=== PATIENT | female | born 1990 | race Caucasian/White ===

== ENCOUNTER 2019-05-10 09:01 | Inpatient (IN) | payer OTHER ==
--- NOTE | 2019-05-10 09:43 | BHS.RME ---
Substance Use & Tx History - Substance Use History Opiates (Heroin) Substance amount: 1 bundle Frequency of use: Daily Substance route: Injection (ex: intravenous or skin popping) Date of Last Use: 05/09/19 Cocaine (Powder) Substance amount: 2-3 bags Frequency of use: Daily Substance route: Injection (ex: intravenous or skin popping) Date of Last Use: 05/09/19 Nicotine Substance amount: 1pack or less Frequency of use: Daily Substance route: Smoking Date of Last Use: 05/10/19 - Last Treatment Date of last treatment: 08/2018 Treatment type: Substance Use Disorder (JOEY) Where was last treatment: [facility]ox ([facility]) Physical/Psych/Mental Status - Behavior General Behavior: Increased activity (restlessness, agitation) Eye Contact: Normal - Cooperativeness Cooperativeness: Cooperative - Thinking Thought Processes: Tight, Logical, Goal Directed Thought content: Future oriented - Physical Health Problems Is patient presently having any pain?: No Does patient presently have any injuries (include location): No Does patient currently have a fever: No Is patient : No COWS - Scale Sweatin= Chills/Flushing Restless Observation: 3= Extraneous Movement Pupil Size: 1= Pupils >than Normal Bone or Joint Aches: 4=Acute Joint/Muscle Pain Runny Nose/ Eye Tearin= Runny Nose/Eyes GI Upset > 30mins: 1= Stomach Cramp Tremor Observation: 2= Slight Tremor Visible Yawning Observation: 1= 1-2x During Session Anxiety or Irritability: 4=Extreme Anxiety Goose Flesh Skin: 3=Piloerection
[2019-05-10 09:50] VITALS: BMI 23.3
--- NOTE | 2019-05-10 10:21 | HP ---
COWS - Scale Resting Pulse: 1= [place] 81-100 Sweatin= Chills/Flushing Restless Observation: 3= Extraneous Movement Pupil Size: 1= Pupils >than Normal Bone or Joint Aches: 4=Acute Joint/Muscle Pain Runny Nose/ Eye Tearin= Runny Nose/Eyes GI Upset > 30mins: 1= Stomach Cramp Tremor Observation: 2= Slight Tremor Visible Yawning Observation: 1= 1-2x During Session Anxiety or Irritability: 4=Extreme Anxiety Goose Flesh Skin: 3=Piloerection COWS Score: 23 CIWA Score - Admission Criteria [facility]ASAS Guidelines: Admission for Medically Managed Detox: Requires at least one of the followin. CIWA greater than 12 2. Seizures within the past 24 hours 3. Delirium tremens within the past 24 hours 4. Hallucinations within the past 24 hours 5. Acute intervention needed for co occurring medical disorder 6. Acute intervention needed for co occurring psychiatric disorder 7. Severe withdrawal that cannot be handled at a lower level of care (continued vomiting, continued diarrhea, abnormal vital signs) requiring intravenous medication and/or fluids 8. Admitting History and Physical - Admission Chief Complaint: Ms. Cortez presents to [facility] requesting detox from heroin. History of Present Illness: Ms. Cortez presents to [facility] requesting detox from heroin. There are no prior admissions to [facility]. She is a 28 yo woman. PMH:noncontributory PSH: C section Psych: anxiety, depression Substance use history Heroin: one bundle per day, IV, last use yesterday, no hx of OD, No Narcan at home. First use age 23y Nicotine: one ppd Cocaine: IV, daily, 2-3 bags, first use age 23 y, last use yesterday - Past Medical History ...LMP: 05/05/19 ...: No - Smoking History Smoking history: Current every day smoker Have you smoked in the past 12 months: Yes Aproximately how many cigarettes per day: 10 Admission ROS [facility] Allergies/Adverse Reactions: Allergies Allergy/AdvReac Type Severity Reaction Status Date / Time No Known Allergies Allergy Verified 05/10/19 10:00 Exam Limitations: Clinical Condition (sleepy) - Ebola screening Have you traveled outside of the country in the last 21 days: No Have you had contact with anyone from an Ebola affected area: No Have you been sick,other than usual withdrawal symptoms: No Do you have a fever: No - Review of Systems Constitutional: No Symptoms Reported EENT: reports: Nose Congestion Respiratory: reports: No Symptoms reported Cardiac: reports: No Symptoms Reported GI: reports: Nausea Musculoskeletal: reports: No Symptoms Reported Integumentary: reports: No Symptoms Reported Neuro: reports: No Symptoms reported Endocrine: reports: No Symptoms Reported Hematology: reports: No Symptoms Reported Psychiatric: reports: Anxious Patient History - Patient Medical History Hx Asthma: No Hx Chronic Obstructive Pulmonary Disease (COPD): No Hx Cardiac Disorders: No Hx Hypertension: No Hx Seizures: No Hx Diabetes: No Hx Gastrointestinal Disorders: No Hx Genitourinary Disorders: No Hx Sexually Transmitted Disorders: No Hx Renal Disease (ESRD): No Hx Depression: Yes Hx Suicide Attempt: No Hx Schizophrenia: No - Patient Surgical History Past Surgical History: Yes Hx Neurologic Surgery: No Hx Cataract Extraction: No Hx Cardiac Surgery: No Hx Lung Surgery: No Hx Breast Surgery: No Hx Breast Biopsy: No Hx Abdominal Surgery: No Hx Appendectomy: No Hx Cholecystectomy: No Hx Genitourinary Surgery: No Hx Section: Yes (x1) Hx Orthopedic Surgery: No Anesthesia Reaction: No - PPD History Previous Implant?: No Documented Results: Negative w/o proof Implanted On Prior R Admission?: No - Reproductive History Last Menstrual Period: 05/05/19 Patient : No - Smoking Cessation Smoking history: Current every day smoker Have you smoked in the past 12 months: Yes Aproximately how many cigarettes per day: 10 Hx Chewing Tobacco Use: No Initiated information on smoking cessation: Yes 'Breaking Loose' booklet given: 05/10/19 - Substances abused Heroin Substance route: Injection Frequency: Daily Amount used: 1 BUNDLE Age of first use: 23 Date of last use: 05/09/19 Methamphetamine Substance route: Injection Frequency: Daily Amount used: 3BAGS Age of first use: 23 Date of last use: 05/09/19 Cocaine Substance route: Injection Frequency: Daily Amount used: 3BAGS Age of first use: 23 Date of last use: 05/09/19 Admission Physical Exam BHS - Vital Signs Vital Signs: Vital Signs - 24 hr 05/10/19 10:05 Temperature 97.5 F L Pulse Rate 85 Respiratory 18 Rate Blood Pressure 125/79 - Physical General Appearance: Yes: Within Normal Limits HEENTM: Yes: Hearing grossly Normal Respiratory: Yes: Lungs Clear Neck: Yes: Within Normal Limits Breast: Yes: Breast Exam Deferred Cardiology: Yes: Regular Rate, S1, S2 Abdominal: Yes: Soft, Decreased BS Back: Yes: Normal Inspection Musculoskeletal: Yes: Within Normal Limits Extremities: Yes: Within Normal Limits Neurological: Yes: Other (sleepy, easily aroused) Integumentary: Yes: Track Barrios (no signs of infection, bilateral arms) - Diagnostic (1) Opioid dependence with intoxication, uncomplicated Current Visit: Yes Status: Acute (2) Cocaine dependence Current Visit: Yes Status: Acute (3) Nicotine dependence Current Visit: Yes Status: Acute (4) Methamphetamine abuse Current Visit: Yes Status: Acute Cleared for Admission S - Detox or Rehab [facility] Level of Care: Medically Managed Breathalyzer - Breathalyzer Breathalyzer: 0 Urine Drug Screen - Test Device Lot number: [id number] Expiration date: 05/10/19 - Results Drug screen NEGATIVE: No Urine drug screen results: AMBREEN-Cocaine, MET-Methamphetamine, FEN-Fentanyl, MOP- Opiates Inpatient Rehab Admission - Rehab Decision to Admit Inpatient rehab admission?: No
[2019-05-10] MEDS ORDERED: IBUPROFEN 400 MG TABLET (FP) PO PRN (10:26)
[2019-05-10] MEDS ORDERED: BISMUTH SUBSALICYLATE 262 MG/15 ML BTL PO PRN (10:26)
[2019-05-10] MEDS ORDERED: MAGNESIUM HYDROX 2400MG/30ML ORAL SUSPENSION 30 ML CUP PO PRN (10:26)
[2019-05-10] MEDS ORDERED: MENTHOL/PHENOL 1 EACH UD MM PRN (10:26)
[2019-05-10] MEDS ORDERED: MAG HYDROX/AL HYDROX/SIMETH 30 ML UNIT-DOSE CUP PO PRN (10:26)
[2019-05-10] MEDS ORDERED: ACETAMINOPHEN 325 MG TABLET (FP) PO PRN ×2 (10:26)
[2019-05-10] MEDS ORDERED: cloNIDine HCL 0.1 MG TABLET PO PRN (10:26)
[2019-05-10] MEDS ORDERED: MAGNESIUM CITRATE 300 ML BOTTLE PO PRN (10:26)
[2019-05-10] MEDS ORDERED: METHADONE HCL 10 MG TABLET (FOR DETOX USE ONLY) PO ONE (10:50)
[2019-05-10] MEDS: NICOTINE 21 MG/24 HOURS TOPICAL PATCH TD SCH (11:37)
[2019-05-10 16:21] LABS: HEMOGLOBIN 9.8 GM/dL (10.7-15.3); MCH 26.3 pg (25.7-33.7); MCHC 31.7 g/dl (32.0-36.0); MEAN CELL VOLUME 82.9 fl (80-96); PLATELET COUNT 408 K/MM3 (134-434); RBC 3.74 M/mm3 (3.60-5.2); RDW 16.1 % (11.6-15.6); WHITE BLOOD COUNT 6.2 K/mm3 (4.0-10.0)
[2019-05-10 16:30] LABS: ALBUMIN 3.2 g/dl (3.4-5.0); BILIRUBIN,TOTAL 0.5 mg/dL (0.2-1); BLOOD UREA NITROGEN 15.4 mg/dL (7-18); CALCIUM 9.2 mg/dL (8.5-10.1); CREATININE 0.8 mg/dL (0.55-1.3); POTASSIUM 4.4 mmol/L (3.5-5.1); TOT PROT 7.2 g/dl (6.4-8.2)
[2019-05-10] MEDS: hydrOXYzine PAMOATE 25 MG CAPSULE (FP) PO PRN (22:19)
[2019-05-10] MEDS: METHOCARBAMOL 500 MG TABLET PO PRN (22:19)
[2019-05-10] MEDS: THIAMINE HCL 100 MG TABLET (FP) PO SCH (22:20)
[2019-05-10] MEDS: MELATONIN 5 MG TABLETS PO PRN (22:20)
[2019-05-11] MEDS ORDERED: METHADONE HCL 5 MG TABLET (FOR DETOX USE ONLY) ONE (09:03)
[2019-05-11] MEDS ORDERED: METHADONE HCL 10 MG TABLET (FOR DETOX USE ONLY) ONE (09:03)
[2019-05-11] MEDS ORDERED: METHADONE (DETOX) 20 MG, METHADONE (DETOX) 5 MG PO ONE (10:00)
[2019-05-11] MEDS: PRENATAL VITAMINS W/ FOLIC ACID TABLET (FP) PO SCH (11:01)
[2019-05-11] MEDS: NICOTINE 21 MG/24 HOURS TOPICAL PATCH TD SCH (11:02)
--- NOTE | 2019-05-11 14:11 | PN ---
S CIWA - CIWA Score Nausea/Vomitin-Mild Nausea/No Vomiting Muscle Tremors: 1-None Visible, but [place] Anxiety: 1-Mildly Anxious Agitation: 1-Slight > Activity Paroxysmal Sweats: 2 Orientation: 0-Oriented Tacttile Disturbances: 1-Very Mild Itch/Numbness Auditory Disturbances: 0-None Visual Disturbances: 0-None Headache: 0-None Present CIWA-Ar Total Score: 7 BHS Progress Note (SOAP) Subjective: interrupted sleep, sweats, Objective: 05/11/19 14:09 Vital Signs Temperature 98.4 F 05/11/19 09:25 Pulse Rate 95 H 05/11/19 09:25 Respiratory Rate 17 05/11/19 09:25 Blood Pressure 130/78 05/11/19 09:25 O2 Sat by Pulse Oximetry (%) Laboratory Tests 05/10/19 05/10/19 05/10/19 09:50 10:50 10:50 WBC 6.2 RBC 3.74 Hgb 9.8 L Hct 31.0 L MCV 82.9 MCH 26.3 MCHC 31.7 L RDW 16.1 H Plt Count 408 MPV 9.0 Sodium 141 Potassium 4.4 Chloride 107 Carbon Dioxide 28 Anion Gap 5 L BUN 15.4 Creatinine 0.8 Est GFR (CKD-EPI)AfAm 117.10 Est GFR (CKD-EPI)NonAf 101.04 Random Glucose 101 Calcium 9.2 Total Bilirubin 0.5 AST 60 H ALT 48 Alkaline Phosphatase 95 Total Protein 7.2 Albumin 3.2 L POC Urine HCG, Qual Negative RPR Titer 05/10/19 10:50 WBC RBC Hgb Hct MCV MCH MCHC RDW Plt Count MPV Sodium Potassium Chloride Carbon Dioxide Anion Gap BUN Creatinine Est GFR (CKD-EPI)AfAm Est GFR (CKD-EPI)NonAf Random Glucose Calcium Total Bilirubin AST ALT Alkaline Phosphatase Total Protein Albumin POC Urine HCG, Qual RPR Titer Nonreactive pt aox3 in nad lying in bed Assessment: 05/11/19 14:10 withdrawal sx;s anemia elevated sgot Plan: cont. detox increase fluids feso4 325mg bid.
[2019-05-11] MEDS: MELATONIN 5 MG TABLETS PO PRN (22:18)
[2019-05-11] MEDS: hydrOXYzine PAMOATE 25 MG CAPSULE (FP) PO PRN (22:19)
[2019-05-11] MEDS: THIAMINE HCL 100 MG TABLET (FP) PO SCH (22:59)
[2019-05-12] MEDS ORDERED: METHADONE HCL 10 MG TABLET (FOR DETOX USE ONLY) PO ONE (10:00)
[2019-05-12] MEDS: NICOTINE 21 MG/24 HOURS TOPICAL PATCH TD SCH (10:32)
[2019-05-12] MEDS: PRENATAL VITAMINS W/ FOLIC ACID TABLET (FP) PO SCH (10:32)
--- NOTE | 2019-05-12 11:38 | PN ---
BHS COWS - Scale Resting Pulse: 1= [place] 81-100 Sweatin= Chills/Flushing Restless Observation: 1= Difficult to Sit Still Pupil Size: 0= Normal to Room Light Bone or Joint Aches: 1= Mild Discomfort Runny Nose/ Eye Tearin= Nasal Congestion GI Upset > 30mins: 1= Stomach Cramp Tremor Observation of Outstretched Hands: 1= Tremor [place], Not Seen Yawning Observation: 0= None Anxiety or Irritability: 1=Feels Anxious/Irritable Goose Flesh Skin: 0=Smooth Skin COWS Score: 8 BHS Progress Note (SOAP) Subjective: pt states she is feeling fine with the detox meds. O: Vital Signs - 24 hr 05/11/19 05/11/19 05/12/19 16:19 20:33 00:29 Temperature 99.5 F 99.0 F Pulse Rate 86 91 H Respiratory 16 18 18 Rate Blood Pressure 113/65 124/72 05/12/19 05/12/19 05/12/19 03:17 06:05 06:56 Temperature 98.4 F Pulse Rate 76 Respiratory 18 18 18 Rate Blood Pressure 124/74 05/12/19 08:38 Temperature 98.9 F Pulse Rate 93 H Respiratory 18 Rate Blood Pressure 121/74 Laboratory Tests 05/10/19 05/10/19 05/10/19 09:50 10:50 10:50 WBC 6.2 RBC 3.74 Hgb 9.8 L Hct 31.0 L MCV 82.9 MCH 26.3 MCHC 31.7 L RDW 16.1 H Plt Count 408 MPV 9.0 Sodium 141 Potassium 4.4 Chloride 107 Carbon Dioxide 28 Anion Gap 5 L BUN 15.4 Creatinine 0.8 Est GFR (CKD-EPI)AfAm 117.10 Est GFR (CKD-EPI)NonAf 101.04 Random Glucose 101 Calcium 9.2 Total Bilirubin 0.5 AST 60 H ALT 48 Alkaline Phosphatase 95 Total Protein 7.2 Albumin 3.2 L POC Urine HCG, Qual Negative RPR Titer 05/10/19 10:50 WBC RBC Hgb Hct MCV MCH MCHC RDW Plt Count MPV Sodium Potassium Chloride Carbon Dioxide Anion Gap BUN Creatinine Est GFR (CKD-EPI)AfAm Est GFR (CKD-EPI)NonAf Random Glucose Calcium Total Bilirubin AST ALT Alkaline Phosphatase Total Protein Albumin POC Urine HCG, Qual RPR Titer Nonreactive mild anemia a/p: OUD- continue detox protocol anemia Hct 32 , f/u PCP
[2019-05-12] MEDS: hydrOXYzine PAMOATE 25 MG CAPSULE (FP) PO PRN (22:00)
[2019-05-12] MEDS: MELATONIN 5 MG TABLETS PO PRN (22:01)
[2019-05-12] MEDS: METHOCARBAMOL 500 MG TABLET PO PRN (22:01)
[2019-05-12] MEDS: THIAMINE HCL 100 MG TABLET (FP) PO SCH (22:01)
[2019-05-13] MEDS ORDERED: METHADONE HCL 5 MG TABLET (FOR DETOX USE ONLY) ONE (08:53)
[2019-05-13] MEDS ORDERED: METHADONE HCL 10 MG TABLET (FOR DETOX USE ONLY) ONE (08:53)
[2019-05-13] MEDS ORDERED: METHADONE (DETOX) 10 MG, METHADONE (DETOX) 5 MG PO ONE (10:00)
[2019-05-13] MEDS: PRENATAL VITAMINS W/ FOLIC ACID TABLET (FP) PO SCH (10:04)
[2019-05-13] MEDS: NICOTINE 21 MG/24 HOURS TOPICAL PATCH TD SCH (10:04)
--- NOTE | 2019-05-13 11:51 | PN ---
BHS COWS - Scale Resting Pulse: 1= [place] 81-100 Sweatin= Chills/Flushing Restless Observation: 1= Difficult to Sit Still Pupil Size: 1= Pupils >than Normal Bone or Joint Aches: 1= Mild Discomfort Runny Nose/ Eye Tearin= None GI Upset > 30mins: 0= None Tremor Observation of Outstretched Hands: 0= None Yawning Observation: 0= None Anxiety or Irritability: 1=Feels Anxious/Irritable Goose Flesh Skin: 0=Smooth Skin COWS Score: 6 BHS Progress Note (SOAP) Subjective: interrupted sleep, sweats but better Objective: 05/13/19 11:48 Vital Signs Temperature 98.1 F 05/13/19 09:05 Pulse Rate 91 H 05/13/19 09:05 Respiratory Rate 16 05/13/19 09:05 Blood Pressure 109/87 05/13/19 09:05 O2 Sat by Pulse Oximetry (%) Laboratory Tests 05/10/19 05/10/19 05/10/19 09:50 10:50 10:50 WBC 6.2 RBC 3.74 Hgb 9.8 L Hct 31.0 L MCV 82.9 MCH 26.3 MCHC 31.7 L RDW 16.1 H Plt Count 408 MPV 9.0 Sodium 141 Potassium 4.4 Chloride 107 Carbon Dioxide 28 Anion Gap 5 L BUN 15.4 Creatinine 0.8 Est GFR (CKD-EPI)AfAm 117.10 Est GFR (CKD-EPI)NonAf 101.04 Random Glucose 101 Calcium 9.2 Total Bilirubin 0.5 AST 60 H ALT 48 Alkaline Phosphatase 95 Total Protein 7.2 Albumin 3.2 L POC Urine HCG, Qual Negative RPR Titer 05/10/19 10:50 WBC RBC Hgb Hct MCV MCH MCHC RDW Plt Count MPV Sodium Potassium Chloride Carbon Dioxide Anion Gap BUN Creatinine Est GFR (CKD-EPI)AfAm Est GFR (CKD-EPI)NonAf Random Glucose Calcium Total Bilirubin AST ALT Alkaline Phosphatase Total Protein Albumin POC Urine HCG, Qual RPR Titer Nonreactive pt aox3 in nad sitting in day room . Assessment: 05/13/19 11:48 withdrawal sx's mild anemia 05/13/19 11:50 Plan: cont. detox increase fluids feso4 325mg qd
[2019-05-13] MEDS: THIAMINE HCL 100 MG TABLET (FP) PO SCH (22:06)
[2019-05-13] MEDS: hydrOXYzine PAMOATE 25 MG CAPSULE (FP) PO PRN (22:06)
[2019-05-13] MEDS: METHOCARBAMOL 500 MG TABLET PO PRN (22:07)
[2019-05-14] MEDS ORDERED: METHADONE HCL 10 MG TABLET (FOR DETOX USE ONLY) PO ONE (10:00)
[2019-05-14] MEDS: NICOTINE 21 MG/24 HOURS TOPICAL PATCH TD SCH (10:16)
[2019-05-14] MEDS: FERROUS SO4 325 MG TABLET (FP) PO SCH (10:16)
[2019-05-14] MEDS: PRENATAL VITAMINS W/ FOLIC ACID TABLET (FP) PO SCH (10:16)
--- NOTE | 2019-05-14 13:38 | PN ---
BHS COWS - Scale Resting Pulse: 1= [place] 81-100 Sweatin= No chills or Flushing Restless Observation: 0= Sits Still Pupil Size: 0= Normal to Room Light Bone or Joint Aches: 0= None Runny Nose/ Eye Tearin= None GI Upset > 30mins: 0= None Tremor Observation of Outstretched Hands: 0= None Yawning Observation: 1= 1-2x During Session Anxiety or Irritability: 0= None Goose Flesh Skin: 0=Smooth Skin COWS Score: 2 BHS Progress Note (SOAP) Subjective: Patient denies current Withdrawal / Detox symptoms and reports that she feels well overall at this time. Objective: 05/14/19 13:33 Vital Signs Temperature 98.1 F 05/14/19 12:41 Pulse Rate 83 05/14/19 12:41 Respiratory Rate 16 05/14/19 12:41 Blood Pressure 121/66 05/14/19 12:41 O2 Sat by Pulse Oximetry (%) Laboratory Tests 05/10/19 05/10/19 05/10/19 09:50 10:50 10:50 WBC 6.2 RBC 3.74 Hgb 9.8 L Hct 31.0 L MCV 82.9 MCH 26.3 MCHC 31.7 L RDW 16.1 H Plt Count 408 MPV 9.0 Sodium 141 Potassium 4.4 Chloride 107 Carbon Dioxide 28 Anion Gap 5 L BUN 15.4 Creatinine 0.8 Est GFR (CKD-EPI)AfAm 117.10 Est GFR (CKD-EPI)NonAf 101.04 Random Glucose 101 Calcium 9.2 Total Bilirubin 0.5 AST 60 H ALT 48 Alkaline Phosphatase 95 Total Protein 7.2 Albumin 3.2 L POC Urine HCG, Qual Negative RPR Titer 05/10/19 10:50 WBC RBC Hgb Hct MCV MCH MCHC RDW Plt Count MPV Sodium Potassium Chloride Carbon Dioxide Anion Gap BUN Creatinine Est GFR (CKD-EPI)AfAm Est GFR (CKD-EPI)NonAf Random Glucose Calcium Total Bilirubin AST ALT Alkaline Phosphatase Total Protein Albumin POC Urine HCG, Qual RPR Titer Nonreactive LABS NOTED. PATIENT REPORTS KNOWN HISTORY OF ANEMIA. 05/14/19 13:34 Assessment: 05/14/19 13:34 WITHDRAWAL SYMPTOMS. ANEMIA. ELEVATED AST LEVEL. Plan: CONTINUE DETOX. PATIENT SCHEDULED FOR DISCHARGE FROM DETOX UNIT TOMORROW.
[2019-05-14] MEDS: MELATONIN 5 MG TABLETS PO PRN (22:43)
[2019-05-14] MEDS: hydrOXYzine PAMOATE 25 MG CAPSULE (FP) PO PRN (22:43)
[2019-05-14] MEDS: THIAMINE HCL 100 MG TABLET (FP) PO SCH (22:43)
[2019-05-15] MEDS ORDERED: METHADONE HCL 5 MG TABLET (FOR DETOX USE ONLY) PO ONE (06:00)
[2019-05-15] MEDS: FERROUS SO4 325 MG TABLET (FP) PO SCH (10:27)
[2019-05-15] MEDS: NICOTINE 21 MG/24 HOURS TOPICAL PATCH TD SCH (10:27)
[2019-05-15] MEDS: PRENATAL VITAMINS W/ FOLIC ACID TABLET (FP) PO SCH (10:28)
[2019-05-15] MEDS ORDERED: cloNIDine HCL 0.1 MG TABLET PO PRN (16:16)
--- NOTE | 2019-05-15 16:21 | PN ---
S COWS - Scale Resting Pulse: 1= [place] 81-100 Sweatin= No chills or Flushing Restless Observation: 1= Difficult to Sit Still Pupil Size: 0= Normal to Room Light Bone or Joint Aches: 0= None Runny Nose/ Eye Tearin= None GI Upset > 30mins: 0= None Tremor Observation of Outstretched Hands: 0= None Yawning Observation: 0= None Anxiety or Irritability: 2=Irritable/Anxious Goose Flesh Skin: 0=Smooth Skin COWS Score: 4 BHS Progress Note (SOAP) Subjective: Anxious, restless, interrupted sleep. Patient requesting discharge tomorrow instead of today as she is afraid of relapsing. As per patient, her outpatient rehab program opens tomorrow and her living environment is not helpful if discharged today as she will relapse in using heroin and cocaine. Objective: 05/15/19 16:19 Last Vital Signs Temp Pulse Resp BP Pulse Ox 99.1 F 88 18 121/74 05/15/19 12:34 05/15/19 12:34 05/15/19 12:34 05/15/19 12:34 Laboratory Tests 05/10/19 05/10/19 05/10/19 09:50 10:50 10:50 WBC 6.2 RBC 3.74 Hgb 9.8 L Hct 31.0 L MCV 82.9 MCH 26.3 MCHC 31.7 L RDW 16.1 H Plt Count 408 MPV 9.0 Sodium 141 Potassium 4.4 Chloride 107 Carbon Dioxide 28 Anion Gap 5 L BUN 15.4 Creatinine 0.8 Est GFR (CKD-EPI)AfAm 117.10 Est GFR (CKD-EPI)NonAf 101.04 Random Glucose 101 Calcium 9.2 Total Bilirubin 0.5 AST 60 H ALT 48 Alkaline Phosphatase 95 Total Protein 7.2 Albumin 3.2 L POC Urine HCG, Qual Negative RPR Titer 05/10/19 10:50 WBC RBC Hgb Hct MCV MCH MCHC RDW Plt Count MPV Sodium Potassium Chloride Carbon Dioxide Anion Gap BUN Creatinine Est GFR (CKD-EPI)AfAm Est GFR (CKD-EPI)NonAf Random Glucose Calcium Total Bilirubin AST ALT Alkaline Phosphatase Total Protein Albumin POC Urine HCG, Qual RPR Titer Nonreactive Labs reviewed: anemia noted (on iron supplement) Assessment: 05/15/19 16:19 Withdrawal sxs Plan: Continue detox Encouraged PO water intake Discharge changed from today to tomorrow due to high risk of relapsing Anemia: continue ferrous sulfate, follow up with PCP for management
[2019-05-15] MEDS: THIAMINE HCL 100 MG TABLET (FP) PO SCH (22:14)
[2019-05-16 06:40] VITALS: TEMP 98.1
[2019-05-16 09:58] VITALS: BP 113/72; PULSE 79
--- NOTE | 2019-05-16 10:40 | DS ---
[facility] Detox Discharge Summary Admission Date: 05/10/19 Discharge Date: 05/16/19 - History Present History: Cannabis Dependence, Cocaine Dependence, Opioid Dependence Pertinent Past History: Pt completed heroin detox today. Will follow-up at an outpt program. Pt has h/o polysubstance use. Utox pos for: AMBREEN-Cocaine, MET-Methamphetamine, FEN-Fentanyl, MOP-Opiates Vital Signs - 24 hr 05/15/19 05/15/19 05/15/19 12:34 16:35 20:36 Temperature 99.1 F 98.0 F 98.6 F Pulse Rate 88 80 78 Respiratory 18 16 18 Rate Blood Pressure 121/74 115/66 126/73 05/16/19 05/16/19 05/16/19 00:30 06:40 08:53 Temperature 98.1 F 98.1 F Pulse Rate 60 79 Respiratory 18 18 16 Rate Blood Pressure 131/76 113/72 Laboratory Tests 05/10/19 05/10/19 05/10/19 09:50 10:50 10:50 WBC 6.2 RBC 3.74 Hgb 9.8 L Hct 31.0 L MCV 82.9 MCH 26.3 MCHC 31.7 L RDW 16.1 H Plt Count 408 MPV 9.0 Sodium 141 Potassium 4.4 Chloride 107 Carbon Dioxide 28 Anion Gap 5 L BUN 15.4 Creatinine 0.8 Est GFR (CKD-EPI)AfAm 117.10 Est GFR (CKD-EPI)NonAf 101.04 Random Glucose 101 Calcium 9.2 Total Bilirubin 0.5 AST 60 H ALT 48 Alkaline Phosphatase 95 Total Protein 7.2 Albumin 3.2 L POC Urine HCG, Qual Negative RPR Titer 05/10/19 10:50 WBC RBC Hgb Hct MCV MCH MCHC RDW Plt Count MPV Sodium Potassium Chloride Carbon Dioxide Anion Gap BUN Creatinine Est GFR (CKD-EPI)AfAm Est GFR (CKD-EPI)NonAf Random Glucose Calcium Total Bilirubin AST ALT Alkaline Phosphatase Total Protein Albumin POC Urine HCG, Qual RPR Titer Nonreactive - Physical Exam Results Vital Signs: Vital Signs Temperature 98.1 F 05/16/19 08:53 Pulse Rate 79 05/16/19 08:53 Respiratory Rate 16 05/16/19 08:53 Blood Pressure 113/72 05/16/19 08:53 O2 Sat by Pulse Oximetry (%) - Treatment Hospital Course: Detox Protocol Followed, Detoxed Safely, Responded well, Discharged Condition Good - Medication Discharge Medications: Ambulatory Orders Ferrous Sulfate [Feosol] 325 mg PO BID #14 tablet 05/14/19 - AMA Did Patient Leave Against Medical Advice: No
[2019-05-16] MEDS: FERROUS SO4 325 MG TABLET (FP) PO SCH (11:44)
[2019-05-16] MEDS: PRENATAL VITAMINS W/ FOLIC ACID TABLET (FP) PO SCH (11:45)
[2019-05-16] MEDS: NICOTINE 21 MG/24 HOURS TOPICAL PATCH TD SCH (11:45)
== END 2019-05-16 09:38 | disposition home or self-care (01) | DRG 773 ==
LOC: YASAS 09:01 → Y6N 10:44
PROVIDERS: ADMIT Allergy & Immunology; ATTEND Allergy & Immunology
PROC: HZ2ZZZZ Detoxification Services for Substance Abuse Treatment (ICD-10-PCS; principal; 2019-05-10)
DX: F11.23 Opioid dependence with withdrawal (principal); F14.20 Cocaine dependence, uncomplicated; F15.10 Other stimulant abuse, uncomplicated; F12.20 Cannabis dependence, uncomplicated; F17.210 Nicotine dependence, cigarettes, uncomplicated; F41.8 Other specified anxiety disorders; F32.9 Major depressive disorder, single episode, unspecified; D64.9 Anemia, unspecified; R74.0 Nonspecific elevation of levels of transaminase and lactic acid dehydrogenase [LDH]
CPT/HCPCS: 36415; 80053; 81025; 85027; 86593